=== PATIENT | female | born 1965 | race Caucasian/White ===

== ENCOUNTER 2019-05-30 10:11 | Day surgery (SDC) | payer BC, OTHER ==
[2019-05-30] MEDS ORDERED: Depo-Medrol 40 MG/ML IM ONE (10:12)
[2019-05-30] MEDS ORDERED: Sodium Chloride 0.9% 10 ML FLUSH Syringe IJ ONE (10:12)
[2019-05-30] MEDS ORDERED: Xylocaine 1% Vial 30 ML PF IJ ONE (10:12)
[2019-05-30] MEDS ORDERED: Ketamine HCl 50 MG/ML ONE (11:14)
[2019-05-30] MEDS ORDERED: DIPRIVAN 200 MG/20 ML IV ONE (11:14)
--- NOTE | 2019-05-30 12:55 | XRAY ---
Indication: Lumbar JIMENA. Intraoperative fluoroscopy was provided for 22 seconds. 2 digital spot images submitted for interpretation demonstrates midline posterior needle tip just posterior to the inferior L5 segment. Correlate with intraoperative findings/report.
[2019-05-30] MEDS ORDERED: Lactated Ringers 1,000 ML IV ONE (14:03)
--- NOTE | 2019-05-30 16:53 | XRAY ---
22 seconds fluoroscopy time in surgery for lumbar JIMENA.
== END 2019-05-30 11:42 | disposition home or self-care (01) ==
LOC: SDC-PAIN 10:11
PROVIDERS: ATTEND Psychiatry & Neurology Pain Medicine
DX: M54.16 Radiculopathy, lumbar region (principal); I10 Essential (primary) hypertension; G47.30 Sleep apnea, unspecified; Z79.899 Other long term (current) drug therapy
CPT/HCPCS: 62323; 72100; 77003; J1030; J2001; J2704; Q9966

== ENCOUNTER 2019-10-17 07:44 | Day surgery (SDC) | payer OTHER ==
[2019-10-17] MEDS ORDERED: Depo-Medrol 40 MG/ML IM ONE (07:45)
[2019-10-17] MEDS ORDERED: Marcaine 0.5% SDV 10 ML IJ ONE (07:45)
[2019-10-17] MEDS ORDERED: Xylocaine 1% Vial 30 ML PF IJ ONE (07:45)
--- NOTE | 2019-10-17 11:04 | XRAY ---
Indication: Right shoulder injection. Intraoperative fluoroscopy was provided for 34 seconds. 2 digital spot images submitted for interpretation demonstrates needle tip projecting over the right glenohumeral joint superiorly. Small amount of contrast injected for needle tip placement. Correlate with intraoperative findings/report.
--- NOTE | 2019-10-17 16:53 | XRAY ---
34 seconds was used in surgery for a right intra-articular and right subcromial bursa injections.
== END 2019-10-17 09:06 | disposition home or self-care (01) ==
LOC: SDC-PAIN 07:44
PROVIDERS: ATTEND Psychiatry & Neurology Pain Medicine
DX: M19.011 Primary osteoarthritis, right shoulder (principal); M75.51 Bursitis of right shoulder; I10 Essential (primary) hypertension; G47.30 Sleep apnea, unspecified; Z79.899 Other long term (current) drug therapy
CPT/HCPCS: 20610; 73030; 77002; J1030; J2001; Q9966

== ENCOUNTER 2020-03-19 07:59 | Day surgery (SDC) | payer OTHER ==
[2020-03-19] MEDS ORDERED: BUPIVACAINE 0.5% VIAL IJ ONE (08:00)
[2020-03-19] MEDS ORDERED: Depo-Medrol 40 MG/ML IM ONE (08:00)
[2020-03-19] MEDS ORDERED: Xylocaine 1% Vial 30 ML PF IJ ONE (08:00)
--- NOTE | 2020-03-19 10:54 | XRAY ---
31 seconds fluoroscopy time in surgery for right shoulder injections
--- NOTE | 2020-03-19 10:54 | XRAY ---
Indication: Right shoulder intra-articular and subacromial bursal injections. Intraoperative fluoroscopy was provided for 31 seconds. 2 digital spot images submitted for interpretation demonstrates needle tip projecting over the right glenohumeral joint superiorly. Second needle tip projects subacromial. Contrast injected for both needle placement. Correlate with intraoperative findings/report.
== END 2020-03-19 09:46 | disposition home or self-care (01) ==
LOC: SDC-PAIN 07:59
PROVIDERS: ATTEND Psychiatry & Neurology Pain Medicine
DX: M19.011 Primary osteoarthritis, right shoulder (principal); M75.51 Bursitis of right shoulder; Z79.899 Other long term (current) drug therapy; I10 Essential (primary) hypertension; G47.30 Sleep apnea, unspecified
CPT/HCPCS: 20610; 73030; 77002; J1030; J2001; Q9966